=== PATIENT | female | born 1965 | race American Indian/Alaskan Native ===

== ENCOUNTER 2016-12-26 06:55 | Inpatient (IN) | payer SELFPAY ==
--- NOTE | 2016-12-26 07:28 | XRay Report ---
Single view chest: History: Dysrhythmia. Findings: Normal cardiomediastinal silhouette. Trachea is midline. No consolidation, pneumothorax or pleural effusion. Impression: No acute cardiopulmonary findings.
[2016-12-26 07:53] LABS: Eosinophils % (Auto) 1.8 % (0.0-4.3); Hematocrit 40.9 % (30.3-42.9); Hemoglobin 13.4 gm/dl (10.1-14.3); Mean Corpuscular HGB Conc 33 % (30-34); Mean Corpuscular Hemoglobin 29 pg (28-32); Mean Corpuscular Volume 90 fl (79-97); Platelet Count 279 K/mm3 (140-440); Red Blood Count 4.54 M/mm3 (3.65-5.03); Red Cell Distribution Width 15.3 % (13.2-15.2); White Blood Count 5.6 K/mm3 (4.5-11.0)
[2016-12-26 08:02] LABS: INR 0.97 (0.87-1.13)
--- NOTE | 2016-12-26 08:02 | Emergency Department Report ---
ED Palpitations HPI - General Chief Complaint: Arrhythmia/Palpitations Stated Complaint: CHEST PAIN Time Seen by Provider: 12/26/16 07:13 Source: patient, EMS Mode of arrival: Stretcher Limitations: No Limitations - History of Present Illness Initial Comments: The patient was found to have a supraventricular tachycardia at approximately 188 when paramedics responded to her this a.m. Paramedics state that she took a deep breath and apparently did as Valsalva maneuver. This caused spontaneous termination of her dysrhythmia with subsequent normal sinus rhythm. She did tell triage that she had chest tightness which started at 4:30 AM today. Apparently she also mentioned shortness of breath and nausea vomiting. She was not complaining of any chest pain at the time of my encounter. She did state that she has had this occur before but is not currently under the care of a office clerk routine. MD Complaint: "heart racing" -: Sudden Context: occured during rest Arrythmia History: other Associated Symptoms: denies other symptoms Treatments Prior to Arrival: other - Related Data Previous Rx's Medication Instructions Recorded Last Taken Type Cyclobenzaprine HCl [Flexeril] 10 mg PO QDAY PRN #10 tablet 08/06/13 Unknown Rx Cyclobenzaprine [Flexeril 10mg] 10 mg PO TID PRN 10 Days 01/22/14 Unknown Rx HYDROcodone/ACETAMINOPHEN [[place] 1 each PO BID #10 tablet 01/22/14 Unknown Rx 5/325 Tablet] Ibuprofen [Motrin 600 MG tab] 800 mg PO Q8H PRN #12 tablet 01/22/14 Unknown Rx Allergies Allergy/AdvReac Type Severity Reaction Status Date / Time No Known Allergies Allergy Verified 09/03/15 15:18 ED Review of Systems ROS: Stated complaint: CHEST PAIN Other details as noted in HPI Constitutional: denies: chills, fever Eyes: denies: eye pain, eye discharge, vision change ENT: denies: ear pain, throat pain Respiratory: shortness of breath. denies: cough, wheezing Cardiovascular: chest pain. denies: palpitations Endocrine: no symptoms reported Gastrointestinal: nausea (chest pain and nausea per triage note. We will verify this). denies: abdominal pain, diarrhea Genitourinary: denies: urgency, dysuria, discharge Musculoskeletal: denies: back pain, joint swelling, arthralgia Skin: denies: rash, lesions Neurological: denies: headache, weakness, paresthesias Psychiatric: denies: anxiety, depression Hematological/Lymphatic: denies: easy bleeding, easy bruising ED Past Medical Hx - Past Medical History Previous Medical History?: No Hx Hypertension: Yes (not on meds) Hx CVA: No Hx Heart Attack/AMI: No Hx Congestive Heart Failure: No Hx Diabetes: No Hx Deep Vein Thrombosis: No Hx Pulmonary Embolism: No Hx GERD: No Hx Liver Disease: No Hx Sickle Cell Disease: No Hx Headaches / Migraines: No Hx Seizures: No Hx Kidney Stones: No Hx Psychiatric Treatment: No Hx Asthma: No Hx Tuberculosis: No Hx Dementia: No Hx HIV: No - Surgical History Past Surgical History?: Yes Hx Coronary Stent: No Hx Open Heart Surgery: No Hx Internal Defibrillator: No Hx Appendectomy: No Hx Breast Surgery: No Additional Surgical History: Mole removed to left side of head - Social History Smoking Status: Current Every Day Smoker Substance Use Type: Alcohol - Medications Home Medications: Home Medications Medication Instructions Recorded Confirmed Last Taken Type Cyclobenzaprine HCl [Flexeril] 10 mg PO QDAY PRN #10 tablet 08/06/13 Unknown Rx Cyclobenzaprine [Flexeril 10mg] 10 mg PO TID PRN 10 Days 01/22/14 Unknown Rx HYDROcodone/ACETAMINOPHEN [[place] 1 each PO BID #10 tablet 01/22/14 Unknown Rx 5/325 Tablet] Ibuprofen [Motrin 600 MG tab] 800 mg PO Q8H PRN #12 tablet 01/22/14 Unknown Rx ED Physical Exam - General Limitations: No Limitations General appearance: alert, in no apparent distress - Head Head exam: Present: atraumatic, normocephalic - Eye Eye exam: Present: normal appearance - ENT ENT exam: Present: mucous membranes moist - Neck Neck exam: Present: normal inspection - Respiratory Respiratory exam: Present: normal lung sounds bilaterally. Absent: respiratory distress - Cardiovascular Cardiovascular Exam: Present: regular rate, normal rhythm. Absent: systolic murmur, diastolic murmur, rubs, gallop - GI/Abdominal GI/Abdominal exam: Present: soft, normal bowel sounds. Absent: distended, tenderness, guarding, rebound, rigid - Extremities Exam Extremities exam: Present: normal inspection - Back Exam Back exam: Present: normal inspection - Neurological Exam Neurological exam: Present: alert, oriented X3, CN II-XII intact. Absent: motor sensory deficit - Psychiatric Psychiatric exam: Present: normal affect, normal mood - Skin Skin exam: Present: warm, dry, intact, normal color. Absent: rash ED Course Vital Signs 12/26/16 12/26/16 12/26/16 06:48 06:50 07:00 Pulse Rate 86 Respiratory 17 25 H Rate Blood Pressure 118/83 118/83 O2 Sat by Pulse 98 98 Oximetry 12/26/16 12/26/16 12/26/16 07:05 07:11 07:21 Pulse Rate 89 92 H 90 Respiratory 18 14 22 Rate Blood Pressure 118/83 123/91 O2 Sat by Pulse 97 99 97 Oximetry 12/26/16 12/26/16 12/26/16 07:30 07:41 07:51 Pulse Rate 88 89 87 Respiratory 21 19 19 Rate Blood Pressure 128/90 128/90 130/89 O2 Sat by Pulse 97 97 Oximetry 12/26/16 12/26/16 12/26/16 08:00 08:11 08:21 Pulse Rate 86 84 82 Respiratory 20 20 18 Rate Blood Pressure 133/92 133/92 124/91 O2 Sat by Pulse 96 97 97 Oximetry 12/26/16 12/26/16 08:30 08:49 Pulse Rate 82 Respiratory 22 16 Rate Blood Pressure 134/93 O2 Sat by Pulse 99 Oximetry - Reevaluation(s) Reevaluation #1: I obtained another history from this patient. She is an extremely poor historian. She states that she was already awake when she felt a discomfort in her throat. She did not have the cardiac awareness enough to know that her heart was beating fast. Initially was difficult to obtain a history of chest pain from her again but finally she did state that she had tightness in her chest as well as the shortness of breath. 12/26/16 09:11 Reevaluation #2: The patient states that she was seen here 6 months ago for similar symptoms. I have scanned her previous records and I don't see any chest pain or SVT type visit. She stated at that time she was discharged. I do not believe as far as I can tell she is had any prior cardiac workup. As such, I will admit the patient for further care and evaluation of her chest pain associated with SVT. 12/26/16 09:13 ED Medical Decision Making - Lab Data Result diagrams: 12/26/16 07:22 12/26/16 07:22 Laboratory Results - last 24 hr 12/26/16 12/26/16 12/26/16 07:22 07:22 07:22 WBC 5.6 RBC 4.54 Hgb 13.4 Hct 40.9 MCV 90 MCH 29 MCHC 33 RDW 15.3 H Plt Count 279 Lymph % (Auto) 26.9 [place] % (Auto) 6.0 Eos % (Auto) 1.8 Baso % (Auto) 1.0 Lymph # 1.5 [place] # 0.3 Eos # 0.1 Baso # 0.1 Seg Neutrophils % 64.3 Seg Neutrophils # 3.6 PT 13.4 INR 0.97 APTT 31.7 Sodium 141 Potassium 4.2 Chloride 104.3 Carbon Dioxide 25 Anion Gap 16 BUN 12 Creatinine 0.8 Estimated GFR > 60 BUN/Creatinine Ratio 15.00 Glucose 103 H Calcium 8.1 L Magnesium Total Bilirubin Direct Bilirubin Indirect Bilirubin AST ALT Alkaline Phosphatase Total Creatine Kinase CK-MB (CK-2) CK-MB (CK-2) Rel Index Troponin T < 0.010 NT-Pro-B Natriuret Pep Total Protein Albumin Albumin/Globulin Ratio TSH 12/26/16 12/26/16 07:22 07:22 WBC RBC Hgb Hct MCV MCH MCHC RDW Plt Count Lymph % (Auto) [place] % (Auto) Eos % (Auto) Baso % (Auto) Lymph # [place] # Eos # Baso # Seg Neutrophils % Seg Neutrophils # PT INR APTT Sodium Potassium Chloride Carbon Dioxide Anion Gap BUN Creatinine Estimated GFR BUN/Creatinine Ratio Glucose Calcium Magnesium 1.60 L Total Bilirubin 0.20 Direct Bilirubin < 0.2 Indirect Bilirubin 0.0 AST 55 H ALT 29 Alkaline Phosphatase 94 Total Creatine Kinase 108 CK-MB (CK-2) 2.5 CK-MB (CK-2) Rel Index 2.3 Troponin T NT-Pro-B Natriuret Pep 273.2 Total Protein 6.6 Albumin 3.5 L Albumin/Globulin Ratio 1.1 TSH 0.879 - EKG Data -: EKG Interpreted by Me - EKG Data Interpretation: other (first EKG demonstrates supraventricular tachycardia with some inferolateral ST depression ischemia could not be excluded. Upon cardioversion EKG essentially shows normalization of the inferolateral ST segments and normal sinus rhythm.) - Radiology Data interpreted by me: Chest x-ray shows no acute process Critical care attestation.: If time is entered above; I have spent that time in minutes in the direct care of this critically ill patient, excluding procedure time. ED Disposition Clinical Impression: Supraventricular tachycardia Chest pain Qualifiers: Chest pain type: unspecified Qualified Code(s): R07.9 - Chest pain, unspecified Disposition: OP ADMIT IP TO THIS HOSP Is pt being admited?: Yes Does the pt Need Aspirin: Yes Condition: Stable Instructions: Chest Pain (ED) Referrals: PRIMARY CARE, [Primary Care Provider] - 3-5 Days Time of Disposition: 09:16
[2016-12-26 08:03] LABS: Partial Thromboplastin Time 31.7 Sec. (24.2-36.6)
[2016-12-26 08:05] LABS: Anion Gap 16 mmol/L; Blood Urea Nitrogen 12 mg/dL (7-17); Calcium 8.1 mg/dL (8.4-10.2); Carbon Dioxide 25 mmol/L (22-30); Chloride 104.3 mmol/L (98-107); Glucose 103 mg/dL (65-100); Potassium 4.2 mmol/L (3.6-5.0); Sodium 141 mmol/L (137-145)
[2016-12-26 08:07] LABS: Creatine Kinase MB 2.5 ng/mL (0.0-4.0)
[2016-12-26 08:09] LABS: Alanine Aminotransferase 29 units/L (7-56); Albumin 3.5 g/dL (3.9-5); Albumin/Globulin Ratio 1.1 %; Alkaline Phosphatase 94 units/L (35-129); Creatine Kinase 108 units/L (30-135); Total Protein 6.6 g/dL (6.3-8.2)
[2016-12-26 08:10] LABS: Bilirubin,Direct < 0.2 mg/dL (0-0.2)
[2016-12-26 09:08] LABS: Urine Drugs of Abuse Note Disclamer
[2016-12-26 09:21] LABS: Bacteria,Urine 1+ /HPF (Negative); Bilirubin,Urine NEG (Negative); Blood,Urine SM (Negative); Ketones,Urine NEG (Negative); Leukocyte Esterase,Urine NEG (Negative); Nitrite,Urine NEG (Negative); Urobilinogen,Urine < 2.0 mg/dL (<2.0)
--- NOTE | 2016-12-26 09:49 | Admit Criteria Form ---
Admission Criteria Documentation: SUPRAVENTRICULAR ARRHYTHMIAS Clinical Indications for Admission to Inpatient Care (Place 'X' for any and all applicable criteria): Admission is indicated by ANY ONE of the following (1)(2): [X ]I. Arrhythmia causing significant symptoms or findings as indicated by ANY ONE of the following: [X]a) Chest pain [ ]b) Myocardial ischemia [ ]c) Altered mental status [ ]d) Dizziness, weakness, or light-headedness [ ]e) Dyspnea or hypoxemia [ ]f) Heart failure (eg, pulmonary edema)(11) [ ]II. Initiation of antiarrhythmic drug therapy is needed in patient at high risk of adverse events as indicated by ANY ONE of the following: [ ]a) Significant structural heart disease (eg, aortic stenosis, reduced ejection fraction, cardiomyopathy, congenital heart disease) [ ]b) Underlying sinus node or atrioventricular conduction disturbances [ ]c) Prolonged QT interval [ ]d) Need for treatment with antiarrhythmic that have significant proarrhythmic potential ( procainamide) [ ]e) Patient whose sinus rhythm has not been observed on ECG [ ]III. Inpatient admission required rather than observation care because of ANY ONE of the following: [ ]a) Syncope [ ]b) Patient has automatic implanted cardioverter-defibrillator that is repeatedly firing, malfunctioning, or in need of immediate adjustment of settings beyond scope of ambulatory or observation care. [ ]c) Hemodynamic instability that is severe or persistent [ ]d) Unstable cardiac conduction defects indicated by ANY ONE of the following(19)(20)(21): [ ]a) Type II second-degree atrioventricular block [ ]b) Third-degree atrioventricular block [ ]C) New-onset left bundle branch block with suspected myocardial ischemia [ ]e) Severe electrolyte abnormalities requiring inpatient care [ ]f) Continuous intravenous infusion of anticoagulation, platelet inhibitor, vasoactive, or antiarrhythmic medication(14) [ ]g) Pulmonary artery catheter monitoring [ ]h) Repeat cardioversion necessary [ ]i) Other condition, treatment or monitoring requiring inpatient admission [ ]IV. Underlying medical condition that necessitates inpatient care (eg, thyrotoxicosis, severe acidosis) Extended stay beyond goal length of stay may be needed for(1)(17)(18): [ ]a) Persistent hemodynamic instability or continued severe arrhythmia [ ]b) Continued monitoring during initiation of certain medications (eg, some antiarrhythmics)(17)(19) [ ]c) Precipitating cause requires ongoing inpatient care (eg, severe electrolyte abnormality, systemic infection, acidosis) [ ]d) Unstable comorbidities The original [facility] content created by [facility] has been revised. The portions of the content which have been revised are identified through the use of italic text or in bold, and [facility] has neither reviewed nor approved the modified material. All other unmodified content is copyright [facility]. Please see references footnoted in the original [facility] edition 2016
[2016-12-26] MEDS ORDERED: ASPIRIN PO SCH (10:00)
[2016-12-26] MEDS ORDERED: DULCOLAX PR PRN (10:10)
[2016-12-26] MEDS ORDERED: ZOFRAN IM PRN (10:11)
[2016-12-26] MEDS ORDERED: MAGNESIUM SULFATE IV ONE (10:15)
[2016-12-26] MEDS ORDERED: LOPRESSOR IV PRN (10:16)
[2016-12-26] MEDS ORDERED: NITROSTAT SL ONE (10:16)
[2016-12-26] MEDS ORDERED: ATROPINE IV PRN (10:16)
--- NOTE | 2016-12-26 10:22 | History and Physical Report ---
<JONATHON AUSTIN - Last Filed: 12/26/16 13:24> History of Present Illness Date of examination: 12/26/16 Date of admission: 12/26/16 09:30 Chief complaint: Chest pain History of present illness: Patient is a 51 use old -[place] female with past medical history presents to the emergency department complaining of chest pain. She states that the pain began this morning around 4:30 AM and consisted of a sharp pain. The pain was located over the Midsternal somewhat near her shoulder.She noticed the pain as she was getting out of bed and while the patient was walking to the bath room. She describes the quality as a chest tightness/pressure without radiation to the shoulder, arm, back, or jaw. It has been a constant pain since it started this morning. There is no aggravated or alleviating factors. She continued to have several episodes of the pain throughout this morning, she got worried so she called 911 and they brought her to the ED. At the ED the patient was given nitroglycerin and ASA which she claims helped alleviate the pain somewhat. She has had experienced shortness of breath, nausea, vomiting heart palpitations and diaphoresis during these episodes of pain. She denies lightheadedness and dizziness. She He has never had chest pain in the past and no prior cardiac workup. Patient also complains discomfort in her throat. No change in the pain with movement, no association with food, no GERD hx,. She has never had any Review of systems for the relevant organ system chest pains before, does not have claudication. She does smoke but denies diabetes. She is not on hormone replacement therapy. There is a family history of premature CAD. She does not know her cholesterol level. Past History Past Medical History: No medical history Past Surgical History: No surgical history Social history: Lives alone, smoking Family history: CAD, hypertension Medications and Allergies Allergies Allergy/AdvReac Type Severity Reaction Status Date / Time No Known Allergies Allergy Verified 09/03/15 15:18 Home Medications Medication Instructions Recorded Confirmed Last Taken Type Ibuprofen [Motrin 600 MG tab] 800 mg PO Q8H PRN #12 tablet 01/22/14 12/26/1611/05 Rx Active Meds: Active Medications Acetaminophen (Tylenol) 650 mg PO Q4H PRN PRN Reason: Pain MILD(1-3)/Fever >100.5/[place]SON Aspirin (Aspirin) 325 mg PO QDAY [facility] Atropine Sulfate (Atropine) 0.5 mg IV ONCE PRN PRN Reason: symptomatic bradycardia Stop: 12/27/16 10:17 Bisacodyl (Dulcolax) 10 mg [place] QDAY PRN PRN Reason: Constipation unrelieved by MOM Enoxaparin Sodium (Lovenox) 40 mg SUB-Q QDAY [facility] Magnesium Sulfate 1 gm/ Sodium (Chloride) 52 mls @ 52 mls/hr IV ONCE ONE Stop: 12/26/16 11:59 Metoprolol Tartrate (Lopressor) 5 mg IV Q2M PRN PRN Reason: heart rate =/> 65 BPM Stop: 12/26/16 10:27 Ondansetron HCl (Zofran) 4 mg IM Q4H PRN PRN Reason: Nausea And Vomiting Review of Systems Constitutional: sweats, no weight loss, no weight gain, no fever, no night sweats Ears, nose, mouth and throat: no ear discharge, no tinnitis, no decreased hearing, no nose pain Breasts: no change in shape, no swelling Cardiovascular: chest pain, palpitations, rapid/irregular heart beat, shortness of breath, no syncope, no lightheadedness, no dyspnea on exertion, no paroxysmal nocturnal dyspnea Respiratory: no cough, no cough with sputum, no excessive sputum Gastrointestinal: nausea, vomiting, no abdominal pain, no diarrhea, no constipation, no hematemesis Genitourinary Female: no dysmenorrhea, no pelvic pain, no flank pain, no dysuria , no urinary frequency Menstruation: no currently menstrual, no premenarcheal, no post hysterectomy, no ammenorrhea Rectal: no pain, no incontinence Musculoskeletal: no neck stiffness, no neck pain, no shooting arm pain, no low back pain, no shooting leg pain, no redness of joints Integumentary: no pruritis, no redness, no sores, no jaundice Neurological: no head injury, no transient paralysis, no paralysis, no weakness , no parathesias, no tingling, no seizures Psychiatric: no anxiety, no change in sleep habits, no sleep disturbances, no insomnia, no hypersomnia, no change in appetite Endocrine: palpatations, no cold intolerance, no heat intolerance, no polyphagia , no excessive thirst, no polydipsia, no nocturia, no excessive sweating, no flushing, no weight change, no increase in ring/shoe/hat size, no proptosis, no deepening of the voice, no thyroid mass Hematologic/Lymphatic: no easy bruising Allergic/Immunologic: no urticaria, no allergic rhinitis Exam - Constitutional Vitals: Temp Pulse Resp BP Pulse Ox 82 16 134/93 99 12/26/16 08:30 12/26/16 08:49 12/26/16 08:30 12/26/16 08:49 General appearance: Present: no acute distress - EENT Eyes: Present: PERRL ENT: hearing intact, clear oral mucosa - Neck Neck: Present: supple - Respiratory Respiratory effort: normal Respiratory: bilateral: CTA - Cardiovascular Heart rate: 68 Rhythm: regular Heart Sounds: Present: S1 & S2 - Extremities Extremities: no ischemia Peripheral Pulses: within normal limits - Abdominal General gastrointestinal: Present: soft, non-tender Female genitourinary: Present: deferred - Rectal Rectal Exam: deferred - Integumentary Integumentary: Present: clear, warm, dry - Musculoskeletal Musculoskeletal: strength equal bilaterally - Psychiatric Psychiatric: appropriate mood/affect - Allied Health Allied health notes reviewed: nursing Results - Labs CBC & Chem 7: 12/26/16 07:22 12/26/16 07:22 Labs: Laboratory Last Values WBC 5.6 K/mm3 (4.5-11.0) 12/26/16 07:22 RBC 4.54 M/mm3 (3.65-5.03) 12/26/16 07:22 Hgb 13.4 gm/dl (10.1-14.3) 12/26/16 07:22 Hct 40.9 % (30.3-42.9) 12/26/16 07:22 MCV 90 fl (79-97) 12/26/16 07:22 MCH 29 pg (28-32) 12/26/16 07:22 MCHC 33 % (30-34) 12/26/16 07:22 RDW 15.3 % (13.2-15.2) H 12/26/16 07:22 Plt Count 279 K/mm3 (140-440) 12/26/16 07:22 Lymph % (Auto) 26.9 % (13.4-35.0) 12/26/16 07:22 [place] % (Auto) 6.0 % (0.0-7.3) 12/26/16 07:22 Eos % (Auto) 1.8 % (0.0-4.3) 12/26/16 07:22 Baso % (Auto) 1.0 % (0.0-1.8) 12/26/16 07:22 Lymph # 1.5 K/mm3 (1.2-5.4) 12/26/16 07:22 [place] # 0.3 K/mm3 (0.0-0.8) 12/26/16 07:22 Eos # 0.1 K/mm3 (0.0-0.4) 12/26/16 07:22 Baso # 0.1 K/mm3 (0.0-0.1) 12/26/16 07:22 Seg Neutrophils % 64.3 % (40.0-70.0) 12/26/16 07: Seg Neutrophils # 3.6 K/mm3 (1.8-7.7) 12/26/16 07:22 PT 13.4 Sec. (12.2-14.9) 12/26/16 07:22 INR 0.97 (0.87-1.13) 12/26/16 07: APTT 31.7 Sec. (24.2-36.6) 12/26/16 07:22 Sodium 141 mmol/L (137-145) 12/26/16 07:22 Potassium 4.2 mmol/L (3.6-5.0) 12/26/16 07: Chloride 104.3 mmol/L (98-107) 12/26/16 07:22 Carbon Dioxide 25 mmol/L (22-30) 12/26/16 07:22 Anion Gap 16 mmol/L 12/26/16 07:22 BUN 12 mg/dL (7-17) 12/26/16 07:22 Creatinine 0.8 mg/dL (0.7-1.2) 12/26/16 07:22 Estimated GFR > 60 ml/min 12/26/16 07:22 BUN/Creatinine Ratio 15.00 % 12/26/16 07:22 Glucose 103 mg/dL (65-100) H 12/26/16 07:22 Calcium 8.1 mg/dL (8.4-10.2) L 12/26/16 07:22 Magnesium 1.60 mg/dL (1.7-2.3) L 12/26/16 07:22 Total Bilirubin 0.20 mg/dL (0.1-1.2) 12/26/16 07:22 Direct Bilirubin < 0.2 mg/dL (0-0.2) 12/26/16 07:22 Indirect Bilirubin 0.0 mg/dL 12/26/16 07:22 AST 55 units/L (5-40) H 12/26/16 07:22 ALT 29 units/L (7-56) 12/26/16 07:22 Alkaline Phosphatase 94 units/L (35-129) 12/26/16 07:22 Total Creatine Kinase 108 units/L (30-135) 12/26/16 07:22 CK-MB (CK-2) 2.5 ng/mL (0.0-4.0) 12/26/16 07:22 CK-MB (CK-2) Rel Index 2.3 (0-4) 12/26/16 07:22 Troponin T < 0.010 ng/mL (0.00-0.029) 12/26/16 07:22 NT-Pro-B Natriuret Pep 273.2 pg/mL (0-900) 12/26/16 07:22 Total Protein 6.6 g/dL (6.3-8.2) 12/26/16 07:22 Albumin 3.5 g/dL (3.9-5) L 12/26/16 07:22 Albumin/Globulin Ratio 1.1 % 12/26/16 07:22 TSH 0.879 mlU/mL (0.270-4.200) 12/26/16 07:22 Urine Color Straw (Yellow) 12/26/16 Unknown Urine Turbidity Clear (Clear) 12/26/16 Unknown Urine pH 7.0 (5.0-7.0) 12/26/16 Unknown Ur Specific [place] 1.009 (1.003-1.030) 12/26/16 Unknown Urine Protein 30 mg/dl mg/dL (Negative) 12/26/16 Unknown Urine Glucose (UA) Neg mg/dL (Negative) 12/26/16 Unknown Urine Ketones Neg mg/dL (Negative) 12/26/16 Unknown Urine Blood Sm (Negative) 12/26/16 Unknown Urine Nitrite Neg (Negative) 12/26/16 Unknown Urine Bilirubin Neg (Negative) 12/26/16 Unknown Urine Urobilinogen < 2.0 mg/dL (<2.0) 12/26/16 Unknown Ur Leukocyte Esterase Neg (Negative) 12/26/16 Unknown Urine WBC (Auto) 1.0 /HPF (0.0-6.0) 12/26/16 Unknown Urine RBC (Auto) 4.0 /HPF (0.0-6.0) 12/26/16 Unknown U Epithel Cells (Auto) 2.0 /HPF (0-13.0) 12/26/16 Unknown Urine Bacteria (Auto) 1+ /HPF (Negative) 12/26/16 Unknown - Imaging and Cardiology Chest x-ray: image reviewed (no acute cardio or pulmonary findings.) Assessment and Plan Assessment and plan: Supraventricular tachycardia (SVT) Admit to Telemetry floor for continues cardiac monitoring First EKG demonstrates supraventricular tachycardia with some inferolateral ST depression ischemia could not be excluded. Upon cardioversion EKG essentially shows normalization of the inferolateral ST segments and normal sinus rhythm. Normal TSH IV Fluid Hydration Cardiology consulted Closely monitor patient Chest Pain EKG Normal Sinus rhythm at this time but we will also get another EKG in ordred for any changes that have taken since the first one. Negative cardiac enzyme X3 Started on Aspirin and nitroglycerin when necessary We will get Echocardiogram and stress test Cardiology consulted Tobacco abuse Smoking cessation counseling done patient strongly advised to quit. DVT prophylaxis Lovenox Advance Directives: Yes VTE prophylaxis?: Chemical Contraindication Mechanical VTE Prophylaxis: Treatment Not Indicated Plan of care discussed with patient/family: Yes <ANGELA ANDERSON - Last Filed: 12/26/16 16:04> History of Present Illness Date of admission: 12/26/16 09:30 Medications and Allergies Active Meds: Active Medications Acetaminophen (Tylenol) 650 mg PO Q4H PRN PRN Reason: Pain MILD(1-3)/Fever >100.5/[place] Last Admin: 12/26/16 10:33 Dose: 650 mg Aspirin (Aspirin) 325 mg PO QDAY [facility] Atropine Sulfate (Atropine) 0.5 mg IV ONCE PRN PRN Reason: symptomatic bradycardia Stop: 12/27/16 10:17 Bisacodyl (Dulcolax) 10 mg [place] QDAY PRN PRN Reason: Constipation unrelieved by MOM Enoxaparin Sodium (Lovenox) 40 mg SUB-Q QDAY [facility] Last Admin: 12/26/16 11:17 Dose: Not Given Metoprolol Succinate (Toprol Xl) 25 mg PO QDAY [facility] Ondansetron HCl (Zofran) 4 mg IM Q4H PRN PRN Reason: Nausea And Vomiting Exam - Constitutional Vitals: Temp Pulse Resp BP Pulse Ox 68 18 126/76 83 L 12/26/16 12:31 12/26/16 12:31 12/26/16 12:31 12/26/16 12:31 Results - Labs CBC & Chem 7: 12/26/16 07:22 12/26/16 07:22 Labs: Laboratory Last Values WBC 5.6 K/mm3 (4.5-11.0) 12/26/16 07:22 RBC 4.54 M/mm3 (3.65-5.03) 12/26/16 07:22 Hgb 13.4 gm/dl (10.1-14.3) 12/26/16 07:22 Hct 40.9 % (30.3-42.9) 12/26/16 07:22 MCV 90 fl (79-97) 12/26/16 07:22 MCH 29 pg (28-32) 12/26/16 07:22 MCHC 33 % (30-34) 12/26/16 07:22 RDW 15.3 % (13.2-15.2) H 12/26/16 07:22 Plt Count 279 K/mm3 (140-440) 12/26/16 07:22 Lymph % (Auto) 26.9 % (13.4-35.0) 12/26/16 07:22 [place] % (Auto) 6.0 % (0.0-7.3) 12/26/16 07:22 Eos % (Auto) 1.8 % (0.0-4.3) 12/26/16 07:22 Baso % (Auto) 1.0 % (0.0-1.8) 12/26/16 07:22 Lymph # 1.5 K/mm3 (1.2-5.4) 12/26/16 07:22 [place] # 0.3 K/mm3 (0.0-0.8) 12/26/16 07:22 Eos # 0.1 K/mm3 (0.0-0.4) 12/26/16 07:22 Baso # 0.1 K/mm3 (0.0-0.1) 12/26/16 07:22 Seg Neutrophils % 64.3 % (40.0-70.0) 12/26/16 07:22 Seg Neutrophils # 3.6 K/mm3 (1.8-7.7) 12/26/16 07:22 PT 13.4 Sec. (12.2-14.9) 12/26/16 07:22 INR 0.97 (0.87-1.13) 12/26/16 07:22 APTT 31.7 Sec. (24.2-36.6) 12/26/16 07:22 Sodium 141 mmol/L (137-145) 12/26/16 07:22 Potassium 4.2 mmol/L (3.6-5.0) 12/26/16 07:22 Chloride 104.3 mmol/L (98-107) 12/26/16 07:22 Carbon Dioxide 25 mmol/L (22-30) 12/26/16 07:22 Anion Gap 16 mmol/L 12/26/16 07:22 BUN 12 mg/dL (7-17) 12/26/16 07:22 Creatinine 0.8 mg/dL (0.7-1.2) 12/26/16 07:22 Estimated GFR > 60 ml/min 12/26/16 07:22 BUN/Creatinine Ratio 15.00 % 12/26/16 07:22 Glucose 103 mg/dL (65-100) H 12/26/16 07:22 Calcium 8.1 mg/dL (8.4-10.2) L 12/26/16 07:22 Magnesium 1.60 mg/dL (1.7-2.3) L 12/26/16 07:22 Total Bilirubin 0.20 mg/dL (0.1-1.2) 12/26/16 07:22 Direct Bilirubin < 0.2 mg/dL (0-0.2) 12/26/16 07:22 Indirect Bilirubin 0.0 mg/dL 12/26/16 07:22 AST 55 units/L (5-40) H 12/26/16 07:22 ALT 29 units/L (7-56) 12/26/16 07:22 Alkaline Phosphatase 94 units/L (35-129) 12/26/16 07:22 Total Creatine Kinase 108 units/L (30-135) 12/26/16 07:22 CK-MB (CK-2) 2.5 ng/mL (0.0-4.0) 12/26/16 07:22 CK-MB (CK-2) Rel Index 2.3 (0-4) 12/26/16 07:22 Troponin T 0.027 ng/mL (0.00-0.029) 12/26/16 11:21 NT-Pro-B Natriuret Pep 273.2 pg/mL (0-900) 12/26/16 07:22 Total Protein 6.6 g/dL (6.3-8.2) 12/26/16 07:22 Albumin 3.5 g/dL (3.9-5) L 12/26/16 07:22 Albumin/Globulin Ratio 1.1 % 12/26/16 07:22 TSH 0.879 mlU/mL (0.270-4.200) 12/26/16 07:22 Urine Color Straw (Yellow) 12/26/16 Unknown Urine Turbidity Clear (Clear) 12/26/16 Unknown Urine pH 7.0 (5.0-7.0) 12/26/16 Unknown Ur Specific [place] 1.009 (1.003-1.030) 12/26/16 Unknown Urine Protein 30 mg/dl mg/dL (Negative) 12/26/16 Unknown Urine Glucose (UA) Neg mg/dL (Negative) 12/26/16 Unknown Urine Ketones Neg mg/dL (Negative) 12/26/16 Unknown Urine Blood Sm (Negative) 12/26/16 Unknown Urine Nitrite Neg (Negative) 12/26/16 Unknown Urine Bilirubin Neg (Negative) 12/26/16 Unknown Urine Urobilinogen < 2.0 mg/dL (<2.0) 12/26/16 Unknown Ur Leukocyte Esterase Neg (Negative) 12/26/16 Unknown Urine WBC (Auto) 1.0 /HPF (0.0-6.0) 12/26/16 Unknown Urine RBC (Auto) 4.0 /HPF (0.0-6.0) 12/26/16 Unknown U Epithel Cells (Auto) 2.0 /HPF (0-13.0) 12/26/16 Unknown Urine Bacteria (Auto) 1+ /HPF (Negative) 12/26/16 Unknown Urine Opiates Screen Presumptive negative 12/26/16 Unknown Urine Methadone Screen Presumptive negative 12/26/16 Unknown Ur Barbiturates Screen Presumptive negative 12/26/16 Unknown Ur Phencyclidine Scrn Presumptive negative 12/26/16 Unknown Ur Amphetamines Screen Presumptive negative 12/26/16 Unknown U Benzodiazepines Scrn Presumptive negative 12/26/16 Unknown Urine Cocaine Screen Presumptive negative 12/26/16 Unknown U Marijuana (THC) Screen Presumptive negative 12/26/16 Unknown Drugs of Abuse Note Disclamer 12/26/16 Unknown Assessment and Plan Assessment and plan: I saw and evaluated the patient. I agree with the findings and the plan of care as documented in the Nurse Practitioner's~note, with the following corrections and additions. Patient seen and examined in the ER reports spontaneous onset of rapid heart beat and spontaneously resolved with vomiting. no new complaints. physical exam unremarkable, await Cardiology input.
[2016-12-26] MEDS: TYLENOL PO PRN ×2 (10:33→17:29)
[2016-12-26] MEDS ORDERED: MAGNESIUM SULFATE 1 GM in NACL 0.9% 50 ML IV ONE (11:00)
[2016-12-26] MEDS: LOVENOX SUB-Q SCH (11:17)
--- NOTE | 2016-12-26 12:15 | Consultation ---
History of Present Illness Consult date: 12/26/16 Consult reason: chest pain, other (SVT) History of present illness: This is a 51yr old woman who reports no prior medical history who was brought in with SVT. Patient reports palpitations began this morning associated with chest pain and shortness of breath. EMS was called. ECG in the field was supraventricular tachycardia which was terminated by valsalva maneuver. She has since returned to a normal sinus rhythm. Cardiac consultation was requested. Medications and Allergies Allergies Allergy/AdvReac Type Severity Reaction Status Date / Time No Known Allergies Allergy Verified 09/03/15 15:18 Home Medications Medication Instructions Recorded Confirmed Last Taken Type Ibuprofen [Motrin 600 MG tab] 800 mg PO Q8H PRN #12 tablet 01/22/14 12/26/1611/05 Rx Active Meds: Active Medications Acetaminophen (Tylenol) 650 mg PO Q4H PRN PRN Reason: Pain MILD(1-3)/Fever >100.5/[place] Last Admin: 12/26/16 10:33 Dose: 650 mg Aspirin (Aspirin) 325 mg PO QDAY [facility] Atropine Sulfate (Atropine) 0.5 mg IV ONCE PRN PRN Reason: symptomatic bradycardia Stop: 12/27/16 10:17 Bisacodyl (Dulcolax) 10 mg [place] QDAY PRN PRN Reason: Constipation unrelieved by MOM Enoxaparin Sodium (Lovenox) 40 mg SUB-Q QDAY [facility] Last Admin: 12/26/16 11:17 Dose: Not Given Ondansetron HCl (Zofran) 4 mg IM Q4H PRN PRN Reason: Nausea And Vomiting Physical Examination Vital Signs Pulse Ox 98 12/26/16 06:48 Results 12/26/16 07:22 12/26/16 07:22 Assessment and Plan Supraventricular tachycardia normal TSH Chest pain
[2016-12-26] MEDS: TOPROL XL PO SCH (16:06)
[2016-12-27] MEDS: TYLENOL PO PRN (05:47)
[2016-12-27] MEDS ORDERED: LEXISCAN IV ONE (06:48)
--- NOTE | 2016-12-27 08:53 | Progress Note ---
Assessment and Plan Assessment and plan: Supraventricular tachycardia (SVT) Admit to Telemetry floor for continues cardiac monitoring First EKG demonstrates supraventricular tachycardia with some inferolateral ST depression ischemia could not be excluded. Upon cardioversion EKG essentially shows normalization of the inferolateral ST segments and normal sinus rhythm. Normal TSH IV Fluid Hydration Cardiology consulted Closely monitor patient Chest Pain EKG Normal Sinus rhythm at this time but we will also get another EKG in ordred for any changes that have taken since the first one. Negative cardiac enzyme X3 Started on Aspirin and nitroglycerin when necessary We will get Echocardiogram and stress test Cardiology consulted Tobacco abuse Smoking cessation counseling done patient strongly advised to quit. DVT prophylaxis [facility] Hospitalist Physical - Constitutional Vitals: Temp Pulse Resp BP Pulse Ox 98.6 F 68 20 155/100 99 12/27/16 04:40 12/27/16 04:40 12/27/16 05:47 12/27/16 04:40 12/27/16 04:40 General appearance: Present: no acute distress Results - Labs CBC & Chem 7: 12/26/16 07:22 12/26/16 07:22 Labs: Laboratory Last Values WBC 5.6 K/mm3 (4.5-11.0) 12/26/16 07:22 RBC 4.54 M/mm3 (3.65-5.03) 12/26/16 07:22 Hgb 13.4 gm/dl (10.1-14.3) 12/26/16 07:22 Hct 40.9 % (30.3-42.9) 12/26/16 07:22 MCV 90 fl (79-97) 12/26/16 07:22 MCH 29 pg (28-32) 12/26/16 07:22 MCHC 33 % (30-34) 12/26/16 07:22 RDW 15.3 % (13.2-15.2) H 12/26/16 07:22 Plt Count 279 K/mm3 (140-440) 12/26/16 07:22 Lymph % (Auto) 26.9 % (13.4-35.0) 12/26/16 07:22 [place] % (Auto) 6.0 % (0.0-7.3) 12/26/16 07:22 Eos % (Auto) 1.8 % (0.0-4.3) 12/26/16 07:22 Baso % (Auto) 1.0 % (0.0-1.8) 12/26/16 07:22 Lymph # 1.5 K/mm3 (1.2-5.4) 12/26/16 07:22 [place] # 0.3 K/mm3 (0.0-0.8) 12/26/16 07:22 Eos # 0.1 K/mm3 (0.0-0.4) 12/26/16 07:22 Baso # 0.1 K/mm3 (0.0-0.1) 12/26/16 07:22 Seg Neutrophils % 64.3 % (40.0-70.0) 12/26/16 07:22 Seg Neutrophils # 3.6 K/mm3 (1.8-7.7) 12/26/16 07:22 PT 13.4 Sec. (12.2-14.9) 12/26/16 07:22 INR 0.97 (0.87-1.13) 12/26/16 07:22 APTT 31.7 Sec. (24.2-36.6) 12/26/16 07:22 Sodium 141 mmol/L (137-145) 12/26/16 07:22 Potassium 4.2 mmol/L (3.6-5.0) 12/26/16 07:22 Chloride 104.3 mmol/L (98-107) 12/26/16 07:22 Carbon Dioxide 25 mmol/L (22-30) 12/26/16 07:22 Anion Gap 16 mmol/L 12/26/16 07:22 BUN 12 mg/dL (7-17) 12/26/16 07:22 Creatinine 0.8 mg/dL (0.7-1.2) 12/26/16 07:22 Estimated GFR > 60 ml/min 12/26/16 07:22 BUN/Creatinine Ratio 15.00 % 12/26/16 07:22 Glucose 103 mg/dL (65-100) H 12/26/16 07:22 Calcium 8.1 mg/dL (8.4-10.2) L 12/26/16 07:22 Magnesium 1.60 mg/dL (1.7-2.3) L 12/26/16 07:22 Total Bilirubin 0.20 mg/dL (0.1-1.2) 12/26/16 07:22 Direct Bilirubin < 0.2 mg/dL (0-0.2) 12/26/16 07:22 Indirect Bilirubin 0.0 mg/dL 12/26/16 07:22 AST 55 units/L (5-40) H 12/26/16 07:22 ALT 29 units/L (7-56) 12/26/16 07:22 Alkaline Phosphatase 94 units/L (35-129) 12/26/16 07:22 Total Creatine Kinase 108 units/L (30-135) 12/26/16 07:22 CK-MB (CK-2) 2.5 ng/mL (0.0-4.0) 12/26/16 07:22 CK-MB (CK-2) Rel Index 2.3 (0-4) 12/26/16 07:22 Troponin T 0.027 ng/mL (0.00-0.029) 12/26/16 11:21 NT-Pro-B Natriuret Pep 273.2 pg/mL (0-900) 12/26/16 07:22 Total Protein 6.6 g/dL (6.3-8.2) 12/26/16 07:22 Albumin 3.5 g/dL (3.9-5) L 12/26/16 07:22 Albumin/Globulin Ratio 1.1 % 12/26/16 07:22 TSH 0.879 mlU/mL (0.270-4.200) 12/26/16 07:22 Urine Color Straw (Yellow) 12/26/16 Unknown Urine Turbidity Clear (Clear) 12/26/16 Unknown Urine pH 7.0 (5.0-7.0) 12/26/16 Unknown Ur Specific [place] 1.009 (1.003-1.030) 12/26/16 Unknown Urine Protein 30 mg/dl mg/dL (Negative) 12/26/16 Unknown Urine Glucose (UA) Neg mg/dL (Negative) 12/26/16 Unknown Urine Ketones Neg mg/dL (Negative) 12/26/16 Unknown Urine Blood Sm (Negative) 12/26/16 Unknown Urine Nitrite Neg (Negative) 12/26/16 Unknown Urine Bilirubin Neg (Negative) 12/26/16 Unknown Urine Urobilinogen < 2.0 mg/dL (<2.0) 12/26/16 Unknown Ur Leukocyte Esterase Neg (Negative) 12/26/16 Unknown Urine WBC (Auto) 1.0 /HPF (0.0-6.0) 12/26/16 Unknown Urine RBC (Auto) 4.0 /HPF (0.0-6.0) 12/26/16 Unknown U Epithel Cells (Auto) 2.0 /HPF (0-13.0) 12/26/16 Unknown Urine Bacteria (Auto) 1+ /HPF (Negative) 12/26/16 Unknown Urine Opiates Screen Presumptive negative 12/26/16 Unknown Urine Methadone Screen Presumptive negative 12/26/16 Unknown Ur Barbiturates Screen Presumptive negative 12/26/16 Unknown Ur Phencyclidine Scrn Presumptive negative 12/26/16 Unknown Ur Amphetamines Screen Presumptive negative 12/26/16 Unknown U Benzodiazepines Scrn Presumptive negative 12/26/16 Unknown Urine Cocaine Screen Presumptive negative 12/26/16 Unknown U Marijuana (THC) Screen Presumptive negative 12/26/16 Unknown Drugs of Abuse Note Disclamer 12/26/16 Unknown
[2016-12-27] MEDS ORDERED: ASPIRIN PO SCH (10:00)
[2016-12-27] MEDS ORDERED: SLOW-MAG PO SCH (10:00)
--- NOTE | 2016-12-27 10:14 | Discharge Summary ---
Providers - Providers Date of Admission: 12/26/16 09:30 Date of discharge: 12/27/16 Attending physician: WALDEMAR LOPEZ MD 12/26/16 10:18 Consult to Physician [CONS] Routine Consulting Provider: ELIDA ROSADO Reason For Exam: SVT and chest pain Place consult to:: Lorna Gruber Notified:: yes Phone number called:: via text Was contact made?: Yes If yes, spoke with:: Lorna Time called:: 11:23 Primary care physician: HOSPITAL ADMINISTRATIVE ASSISTANT Hospitalization Condition: Stable Hospital course: Patient is a 51 years old -[place] female with no past medical history presents to the emergency department complaining of chest pain. She states that the pain began this morning around 4:30 AM and consisted of a sharp pain. Patient was diagnosed with chest pain, hypertension and Supraventricular tachycardia (SVT). Patient presented with atypical chest pain, ACS was ruled out ,Stress Normal MPI, negative cardiac enzymes, CXR was wnl and CTA with no risk for pulmonary embolism. Patient chest pain probably from musculoskeletal or gastritis. She was treated with IV fluid hydration, antihypertensive medications. Patient was cardioverted, currently normal sinus rhythm. She is being discharged on oral antihypertensive medication. Patient is clinically improved and stable for discharge. Also Ongoing tobacco use smoking cessation counseling done patient strongly advised to quit. Patient agreed upon course of action. Patient advised to follow-up with her primary care provider. Diagnosed Supraventricular tachycardia (SVT) Hypertension Chest Pain Tobacco abuse Disposition: DC-01 TO HOME OR SELFCARE Time spent for discharge: 33 minuites Core Measure Documentation - Palliative Care Palliative Care/ Comfort Measures: Not Applicable - Core Measures Any of the following diagnoses?: none Exam - Constitutional Vitals: Temp Pulse Resp BP Pulse Ox 98.6 F 68 20 155/100 99 12/27/16 04:40 12/27/16 04:40 12/27/16 05:47 12/27/16 04:40 12/27/16 04:40 General appearance: Present: no acute distress - EENT Eyes: Present: PERRL ENT: hearing intact - Neck Neck: Present: supple - Respiratory Respiratory effort: normal Respiratory: bilateral: CTA - Cardiovascular Rhythm: regular Heart Sounds: Present: S1 & S2 - Extremities Extremities: no ischemia Peripheral Pulses: within normal limits - Abdominal General gastrointestinal: Present: soft, non-tender Female genitourinary: Present: deferred - Rectal Rectal Exam: deferred - Integumentary Integumentary: Present: clear, warm, dry - Musculoskeletal Musculoskeletal: strength equal bilaterally - Psychiatric Psychiatric: appropriate mood/affect - Neurologic Neurologic: CNII-XII intact - Allied Health Allied health notes reviewed: nursing Plan Activity: no restrictions Weight Bearing Status: Weight Bear as Tolerated Diet: low fat, low cholesterol, low salt Follow up with: PRIMARY CARE, [Primary Care Provider] - 3-5 Days Forms: Work/School Release Form Prescriptions: Metoprolol Xl [Metoprolol SUCCINATE ER TAB] 25 mg PO QDAY #60 tablet
[2016-12-27 12:57] VITALS: BP 157/92
[2016-12-27] MEDS: LOVENOX SUB-Q SCH (12:58)
[2016-12-27] MEDS: TOPROL XL PO SCH (12:59)
--- NOTE | 2016-12-27 18:49 | Event Note ---
Date: 12/27/16 Patient underwent a Persantine thallium stress test today, normal perfusion study, normal left ventricular systolic function. Early memory echo findings normal left ventricular systolic function, full results are pending. The patient is stable for cardiac discharge, recommend beta syed therapy for SVT. Recommend cardiac office follow-up in 5-7 days.
--- NOTE | 2016-12-27 23:05 | Treadmill Report ---
THALLIUM STRESS TEST LEFT VENTRICLE: Left ventricular chamber size is within normal. Perfusion study demonstrates homogeneous uptake of the tracer in all segments, no significant perfusion defects identified. Normal apical thinning is noted. Gated analysis demonstrates well preserved left ventricular systolic function, ejection fraction of 50%. CONCLUSION: Normal myocardial perfusion study. JOB# [id number] CA/NTS
== END 2016-12-27 16:39 | disposition home or self-care (01) | DRG 310 ==
LOC: ED 06:55 → 4A 09:30
PROVIDERS: ADMIT Internal Medicine; ATTEND Internal Medicine
DX: I47.1 Supraventricular tachycardia (principal); R07.9 Chest pain, unspecified; Z60.2 Problems related to living alone; I10 Essential (primary) hypertension; F17.200 Nicotine dependence, unspecified, uncomplicated; Z71.6 Tobacco abuse counseling; Z82.49 Family history of ischemic heart disease and other diseases of the circulatory system
CPT/HCPCS: 36415; 71010; 78452; 80048; 80074; 80307; 81001; 82550; 82553; 83735; 83880; 84443; 84484; 85025; 85610; 85730; 93005; 93010; 93017; 93306; 96365; A9502; J1650; J3475

== ENCOUNTER 2017-06-17 12:28 | Emergency (ER) | payer SELFPAY ==
--- NOTE | 2017-06-17 16:23 | Emergency Department Report ---
ED ENT HPI - General Chief complaint: Sore Throat Stated complaint: FLU LIKE SYMPTOMS Time Seen by Provider: 06/17/17 16:04 Source: patient Mode of arrival: Ambulatory Limitations: No Limitations - History of Present Illness MD complaint: sore throat (Started yesterday, associated with dizziness and weakness. Worse today. Did not take anything for it. Positive contact with sick people. ) -: Gradual - Related Data Previous Rx's Medication Instructions Recorded Last Taken Type Ibuprofen [Motrin 600 MG tab] 800 mg PO Q8H PRN #12 tablet 01/22/14 12/25/16 Rx Metoprolol Xl [Metoprolol 25 mg PO QDAY #60 tablet 12/27/16 Unknown Rx SUCCINATE ER TAB] Cephalexin [Keflex] 500 mg PO Q8HR 7 Days cap 06/17/17 Unknown Rx Allergies Allergy/AdvReac Type Severity Reaction Status Date / Time No Known Allergies Allergy Verified 09/03/15 15:18 ED Dental HPI - General Chief complaint: Sore Throat Stated complaint: FLU LIKE SYMPTOMS Time Seen by Provider: 06/17/17 16:04 Source: patient Mode of arrival: Ambulatory Limitations: No Limitations - Related Data Previous Rx's Medication Instructions Recorded Last Taken Type Ibuprofen [Motrin 600 MG tab] 800 mg PO Q8H PRN #12 tablet 01/22/12/25/16 Rx Metoprolol Xl [Metoprolol 25 mg PO QDAY #60 tablet 12/27/16 Unknown Rx SUCCINATE ER TAB] Cephalexin [Keflex] 500 mg PO Q8HR 7 Days cap 06/17/17 Unknown Rx Allergies Allergy/AdvReac Type Severity Reaction Status Date / Time No Known Allergies Allergy Verified 09/03/15 15:18 ED Review of Systems ROS: Stated complaint: FLU LIKE SYMPTOMS Other details as noted in HPI Constitutional: fever. denies: chills Eyes: denies: eye pain, eye discharge, vision change ENT: throat pain. denies: ear pain Respiratory: cough. denies: shortness of breath, wheezing Cardiovascular: denies: chest pain, palpitations Endocrine: no symptoms reported Gastrointestinal: denies: abdominal pain, nausea, diarrhea Genitourinary: denies: urgency, dysuria, discharge Musculoskeletal: denies: back pain, joint swelling, arthralgia Skin: denies: rash, lesions Neurological: denies: headache, weakness, paresthesias Psychiatric: denies: anxiety, depression Hematological/Lymphatic: denies: easy bleeding, easy bruising ED Past Medical Hx - Past Medical History Hx Hypertension: Yes (not on meds) Hx CVA: No Hx Heart Attack/AMI: No Hx Congestive Heart Failure: No Hx Diabetes: No Hx Deep Vein Thrombosis: No Hx Pulmonary Embolism: No Hx GERD: No Hx Liver Disease: No Hx Sickle Cell Disease: No Hx Headaches / Migraines: No Hx Seizures: No Hx Kidney Stones: No Hx Psychiatric Treatment: No Hx Asthma: No Hx Tuberculosis: No Hx Dementia: No Hx HIV: No - Surgical History Hx Coronary Stent: No Hx Open Heart Surgery: No Hx Internal Defibrillator: No Hx Appendectomy: No Hx Breast Surgery: No Additional Surgical History: Mole removed to left side of head - Social History Smoking Status: Current Every Day Smoker Substance Use Type: None - Medications Home Medications: Home Medications Medication Instructions Recorded Confirmed Last Taken Type Ibuprofen [Motrin 600 MG tab] 800 mg PO Q8H PRN #12 tablet 01/22/14 12/26/1611/05 Rx Metoprolol Xl [Metoprolol 25 mg PO QDAY #60 tablet 12/27/16 Unknown Rx SUCCINATE ER TAB] Cephalexin [Keflex] 500 mg PO Q8HR 7 Days cap 06/17/17 Unknown Rx ED Physical Exam - General Limitations: No Limitations General appearance: alert, in no apparent distress - Head Head exam: Present: atraumatic, normocephalic - Eye Eye exam: Present: normal appearance - ENT ENT exam: Present: normal orophraynx (but congested pharynx), mucous membranes moist, TM's normal bilaterally - Neck Neck exam: Present: normal inspection - Respiratory Respiratory exam: Present: normal lung sounds bilaterally. Absent: respiratory distress - Cardiovascular Cardiovascular Exam: Present: regular rate, normal rhythm. Absent: systolic murmur, diastolic murmur, rubs, gallop - GI/Abdominal GI/Abdominal exam: Present: soft, normal bowel sounds - Extremities Exam Extremities exam: Present: normal inspection - Back Exam Back exam: Present: normal inspection - Neurological Exam Neurological exam: Present: alert, oriented X3 - Psychiatric Psychiatric exam: Present: normal affect, normal mood - Skin Skin exam: Present: warm, dry, intact, normal color. Absent: rash ED Course Vital Signs 06/17/17 15:17 Temperature 98.5 F Pulse Rate 93 H Respiratory 16 Rate Blood Pressure 170/103 O2 Sat by Pulse 97 Oximetry Critical care attestation.: If time is entered above; I have spent that time in minutes in the direct care of this critically ill patient, excluding procedure time. ED Disposition Clinical Impression: Pharyngitis Qualifiers: Pharyngitis/tonsillitis etiology: unspecified etiology Qualified Code(s): J02.9 - Acute pharyngitis, unspecified Disposition: - TO HOME OR SELFCARE Is pt being admited?: No Does the pt Need Aspirin: No Condition: Stable Instructions: Pharyngitis (ED) Prescriptions: Cephalexin [Keflex] 500 mg PO Q8HR 7 Days cap Time of Disposition: 18:52
[2017-06-17 19:12] VITALS: BP 165/90
== END 2017-06-17 19:11 | disposition home or self-care (01) ==
LOC: ED 12:28
DX: J02.9 Acute pharyngitis, unspecified (principal); I10 Essential (primary) hypertension; F17.200 Nicotine dependence, unspecified, uncomplicated
CPT/HCPCS: 87116; 87400; 87430; 99282